=== PATIENT | female | born 1955 | race Caucasian/White ===

== ENCOUNTER 2021-06-06 01:36 | Emergency (ER) | payer BC ==
[2021-06-06] MEDS ORDERED: diphenhydrAMINE 25 MG CAP ONE (02:02)
== END 2021-06-06 02:03 | disposition home or self-care (01) ==
LOC: BURERS 01:36
DX: L30.8 Other specified dermatitis (principal); E11.9 Type 2 diabetes mellitus without complications; Z79.84 Long term (current) use of oral hypoglycemic drugs; Z79.899 Other long term (current) drug therapy
CPT/HCPCS: 99282; Q0163